=== PATIENT | male | born 1965 | race Asian ===

== ENCOUNTER 2018-10-08 12:01 | Outpatient (CLI) | payer BC, OTHER | END 2018-10-08 19:49 | disposition home or self-care (01) | LOC: LABW 12:01 | DX: R68.89 Other general symptoms and signs (principal) ==

== ENCOUNTER 2020-06-12 03:08 | Emergency (ER) | payer BC ==
[~2020-06-12] VITALS: Ht 175.3 cm; Wt 78.0 kg
[2020-06-12 03:24] VITALS: TEMP 98
[2020-06-12 03:24] LABS: PLATELET COUNT 217 K/uL (142-355)
[2020-06-12 03:39] LABS: POTASSIUM 3.2 mmol/L (3.6-5.2)
[2020-06-12 04:08] LABS: PARTIAL THROMBOPLASTIN TIME 23.9 SECONDS (24.5-33.6)
[2020-06-12 13:11] VITALS: BP 120/75
== END 2020-06-12 13:13 | disposition short-term general hospital (02) ==
LOC: ED 03:08
PROVIDERS: Emergency Medicine Emergency Medical Services
DX: R41.82 Altered mental status, unspecified (principal); Z03.818 Encounter for observation for suspected exposure to other biological agents ruled out; W06.XXXA Fall from bed, initial encounter; Y92.89 Other specified places as the place of occurrence of the external cause
CPT/HCPCS: 36415; 80053; 80307; 80320; 81000; 82550; 82553; 82962; 85027; 85610; 85730; 87635; 93005; 96360; 96361; 96365; 96375; 99284; J2405; U0003

== ENCOUNTER 2020-09-21 13:40 | Outpatient (CLI) | payer BC, OTHER | END 2020-09-21 21:15 | disposition home or self-care (01) | LOC: LAB 13:40 | PROVIDERS: ATTEND Family Medicine | DX: Z20.828 Contact with and (suspected) exposure to other viral communicable diseases (principal) | CPT/HCPCS: 87635; G2023; U0003 ==

== ENCOUNTER 2021-03-28 10:55 | Outpatient (CLI) | payer BC, OTHER | END 2021-03-28 21:35 | disposition home or self-care (01) | LOC: LAB 10:55 | PROVIDERS: ATTEND Family Medicine | DX: Z20.822 Contact with and (suspected) exposure to COVID-19 (principal) | CPT/HCPCS: 87635; G2023; U0003 ==

== ENCOUNTER 2021-05-03 12:03 | Outpatient (CLI) | payer BC, OTHER | END 2021-05-03 19:38 | disposition home or self-care (01) | LOC: LAB 12:03 | PROVIDERS: ATTEND Family Medicine | DX: Z20.822 Contact with and (suspected) exposure to COVID-19 (principal) | CPT/HCPCS: 87635; G2023; U0003 ==

== ENCOUNTER 2021-09-28 07:51 | Outpatient (CLI) | payer BC, OTHER | END 2021-09-28 20:32 | disposition home or self-care (01) | LOC: LAB 07:51 | PROVIDERS: ATTEND Family Medicine | DX: Z20.822 Contact with and (suspected) exposure to COVID-19 (principal) | CPT/HCPCS: 87635; G2023; U0003 ==